=== PATIENT | female | born 1970 | race American Indian/Alaskan Native ===

== ENCOUNTER 2019-05-28 10:58 | Outpatient (CLI) | payer BC ==
--- NOTE | 2019-05-29 14:15 | Mammography Report ---
DIGITAL SCREENING MAMMOGRAM WITH CAD, 05/28/2019 INDICATION: Routine screening mammography. TECHNIQUE: Digital bilateral 2D mammography was obtained in the craniocaudal and mediolateral obliq ue projections. This examination was interpreted with the benefit of Computer-Aided Detection analysi s. COMPARISON: None available. However, she indicated that she had a previous mammogram at [facility]. FINDINGS: Breast Density: The breasts are almost entirely fatty. A partially circumscribed irregular upper outer mass requires additional imaging. It measures 2.6 cm maximum dimension. No associated calcifications. There is no evidence of dominant mass, suspicious ca lcifications or architectural distortion in the right breast. IMPRESSION: A suspicious 2.5 cm left breast mass. Recommend recall for left spot magnification views and targeted left breast ultrasound. We will also attempt to obtain a prior mammogram for comparison. Follow up recommendation: Special View: Mag Category 0: Incomplete. Needs additional imaging evaluation and/or prior mammograms for comparison. A "normal" or negative report should not discourage follow up or biopsy of a clinically significant f inding. A written summary of these findings will be mailed to the patient. The patient will be entered into a mammography reporting system which will generate a reminder letter for the patient's next appointmen t at the appropriate interval. The [employer] recommends yearly mammograms starting at age 40 and continuing as l monica as a woman is in good health. Breast MRI is recommended for women with an approximate 20-25% or greater lifetime risk of breast cancer, including women with a strong family history of breast or ova kassy cancer or who have been treated for Hodgkin's disease. Signer Name: Arthur Mabry MD Signed: 05/29/2019 2:11 PM Workstation Name: [id number]
== END 2019-05-28 10:59 | disposition home or self-care (01) ==
LOC: MAMMO 10:58
DX: Z12.31 Encounter for screening mammogram for malignant neoplasm of breast (principal)
CPT/HCPCS: 77067

== ENCOUNTER 2020-05-26 18:28 | Emergency (ER) | payer BC ==
[2020-05-26 18:39] VITALS: BP 108/67
--- NOTE | 2020-05-26 18:40 | Emergency Department Report ---
Blank Doc - Documentation Documentation: 49-year-old female that presents with SOB and chest pains with fever of 101 and tachycardia at 124. Stated is on chemo for cancer. HX of fluid in lungs and has pleural vac. This initial assessment/diagnostic orders/clinical plan/treatment(s) is/are subject to change based on patient's health status, clinical progression and re- assessment by fellow clinical providers in the ED. Further treatment and workup at subsequent clinical providers discretion. Patient/guardians urged not to elope from the ED as their condition may be serious if not clinically assessed and managed. Initial orders include: 1- Patient sent to [facility] for further evaluation and treatment 2- sepsis workup initiated with cardiac workup
[2020-05-26 19:21] LABS: INR 1.08 (0.87-1.13)
[2020-05-26 19:22] LABS: Partial Thromboplastin Time 24.6 Sec. (24.2-36.6)
--- NOTE | 2020-05-26 19:28 | XRay Report ---
CHEST 2 VIEWS INDICATION / CLINICAL INFORMATION: Chest Pain. COMPARISON: None available. FINDINGS: SUPPORT DEVICES: Right subclavian port appears well positioned. Right chest tube is in place. HEART / MEDIASTINUM: No significant abnormality. LUNGS / PLEURA: There is a moderate right pleural effusion with passive atelectasis in the right lowe r lung. No pneumothorax. ADDITIONAL FINDINGS: No significant additional findings. IMPRESSION: 1. Moderate right pleural effusion with right chest tube in place. Signer Name: Efren Mckinney MD Signed: 05/26/2020 7:23 PM Workstation Name: [id number]
[2020-05-26 19:32] LABS: Alanine Aminotransferase 65 units/L (7-56); Albumin 3.5 g/dL (3.9-5); Blood Urea Nitrogen 5 mg/dL (7-17); Hemolysis Index 33
[2020-05-26 19:39] LABS: Hematocrit 37.7 % (30.3-42.9); Hemoglobin 12.4 gm/dl (10.1-14.3); Mean Corpuscular HGB Conc 33 % (30-34); Mean Corpuscular Volume 90 fl (79-97); Platelet Count 138 K/mm3 (140-440); Red Cell Distribution Width 14.5 % (13.2-15.2)
[2020-05-26 19:55] LABS: BUN/Creatinine Ratio 8
[2020-05-27] MEDS ORDERED: VANCOMYCIN/NS 1 GM/250 ML 1 GM/250 ML BAG IV ONE (03:00)
[2020-05-27] MEDS ORDERED: CEFEPIME/NS 2 GM/100 ML 2 GM/100 ML BAG IV ONE (03:00)
== END 2020-05-27 06:50 | disposition other institution (70) ==
LOC: ED 18:28
DX: R50.9 Fever, unspecified (principal); Z53.21 Procedure and treatment not carried out due to patient leaving prior to being seen by health care provider
CPT/HCPCS: 36415; 71046; 80053; 82140; 83735; 83880; 84484; 85025; 85610; 85730; 87040; J3370; J0692

== ENCOUNTER 2020-12-25 19:30 | Inpatient (IN) | payer BC, MEDICAID ==
[2020-12-25] MEDS ORDERED: SODIUM CHLORIDE 0.9% 1000 ML 1,000 ML IV ONE (20:08)
--- NOTE | 2020-12-25 20:14 | Emergency Department Report ---
HPI - General Chief Complaint: Overdose Time Seen by Provider: 12/25/20 19:51 - HPI HPI: This is a 50-year-old -[place]inamese female who presents to the emergency department via EMS from home after a suicide attempt by overdose of morphine. 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 One of the [facility] hospice nurses went to check on her today and found her with some water in which she had dissolved 120 mg of morphine. This was on top of the Percocet that she also takes. Per the hospice nurse, they have concerned that the patient has been doing this over the past few days. The patient readily admits that she was attempting to end her life due to the pain that she is in. Apparently, per the hospice nurse, the patient has family that lives in [place] but thinks that [facility] is 24-hour care, which he does not. Currently the patient is awake and alert, and just complains of generalized pain. ED Past Medical Hx - Past Medical History Additional medical history: Breast CA - Surgical History Additional Surgical History: Placement of pleurevac drain - Social History Smoking Status: Unknown if ever smoked - Medications Home Medications: Home Medications Medication Instructions Recorded Confirmed Last Taken Type Acetaminophen [Acetaminophen 1 supp SD Q4HR 12/25/20 12/25/20 Unknown History SUPPOS] Apixaban [Eliquis] 5 mg PO DAILY 12/25/20 12/25/20 Unknown History Chlorpheniramine Maleate 4 mg PO DAILY 12/25/20 12/25/20 Unknown History [Chlortabs] LORazepam [Ativan] 1 tab PO QID PRN 12/25/20 12/25/20 Unknown History Magnesium Oxide [Magnesium] 400 mg PO BID 12/25/20 12/25/20 Unknown History Mirtazapine [Remeron] 15 mg PO DAILY 12/25/20 12/25/20 Unknown History Morphine Concentrate 5 ml PO Q6HR PRN 12/25/20 12/25/20 Unknown History Morphine ER [Ms Contin ER] 30 mg PO Q12HR 12/25/20 12/25/20 12/25/20 History Ondansetron HCl [Zofran] 4 mg PO TID PRN 12/25/20 12/25/20 Unknown History Sennosides [Senna] 1 tab PO DAILY 12/25/20 12/25/20 Unknown History Simethicone [Bicarsim] 80 mg PO DAILY 12/25/20 12/25/20 Unknown History oxyCODONE /ACETAMINOPHEN [Percocet 2 tab PO BID 12/25/20 12/25/20 12/25/20 History 5/325] traZODone [Desyrel] 50 mg PO QHS 12/25/20 12/25/20 Unknown History ED Review of Systems ROS: Stated complaint: OVERDOSE Other details as noted in HPI Comment: All other systems reviewed and negative Constitutional: denies: chills, fever Eyes: denies: eye pain, vision change ENT: denies: ear pain, throat pain Respiratory: denies: cough, shortness of breath Cardiovascular: denies: chest pain, palpitations Gastrointestinal: denies: abdominal pain, vomiting Genitourinary: denies: dysuria, discharge Musculoskeletal: arthralgia, myalgia Skin: denies: rash, lesions Neurological: denies: headache, numbness Psychiatric: depression, suicidal thoughts Physical Exam - Physical Exam Vital Signs: Vital Signs 12/25/20 19:38 Temperature 97.7 F Pulse Rate 118 H Respiratory 17 Rate Blood Pressure 128/81 Blood Pressure 128/81 [Left] O2 Sat by Pulse 96 Oximetry Physical Exam: GENERAL: The patient is ill-appearing. HENT: Normocephalic. Atraumatic. Patient has moist mucous membranes. EYES: Extraocular motions are intact. NECK: Supple. Trachea is midline. CHEST/LUNGS: Clear to auscultation. There is no respiratory distress noted. There is some chest wall tenderness to palpation. No crepitus. HEART/CARDIOVASCULAR: Regular. There is moderate tachycardia. There is no murmur. ABDOMEN: Abdomen is soft, nontender. Patient has normal bowel sounds. There is no abdominal distention. SKIN: Skin is warm and dry. NEURO: The patient is awake, alert, and cooperative. Normal speech. MUSCULOSKELETAL: There is no tenderness or deformity. Radial pulse +2/4 and capillary refill less than 2 seconds bilaterally. ED Course Vital Signs 12/25/20 19:38 Temperature 97.7 F Pulse Rate 118 H Respiratory 17 Rate Blood Pressure 128/81 Blood Pressure 128/81 [Left] O2 Sat by Pulse 96 Oximetry - Consultations Consultation #1: 12/25/20 23:40 I spoke to the neurosurgeon on-call, Dr. Chappell. He took a look at the CT scan and does not feel that the small area of C3 retropulsion has caused any significant cord compression. He recommends a soft cervical collar, instead of a hard one, for comfort. He says that he he would do a consult if requested by the medicine service, but that there is not much to be done given the CT appearance and the patient's status and hospice. - EJ/Peripheral Line Arm R Time Out Performed: Yes Indications: nurses unable to establis Skin Cleansed in Sterile Fashion: Yes Size: 22 Dressing Placed: Tegaderm, tape Patient Tolerated Procedure: well ED Medical Decision Making - Lab Data Result diagrams: 12/25/20 20:07 12/25/20 20:07 Lab Results 12/25/20 12/25/20 12/25/20 Range/Units 20:07 20:07 20:07 WBC 11.4 H (4.5-11.0) K/mm3 RBC 3.68 (3.65-5.03) M/mm3 Hgb 10.9 (10.1-14.3) gm/dl Hct 32.3 (30.3-42.9) % MCV 88 (79-97) fl MCH 30 (28-32) pg MCHC 34 (30-34) % RDW 19.2 H (13.2-15.2) % Plt Count 272 (140-440) K/mm3 Add Manual Diff Complete Total Counted 100 Seg Neutrophils % Director Of Financial Aid Seg Neuts % (Manual) 89.0 H (40.0-70.0) % Lymphocytes % (Manual) 6.0 L (13.4-35.0) % Monocytes % (Manual) 5.0 (0.0-7.3) % Nucleated RBC % Not Reportable Seg Neutrophils # Man 10.1 H (1.8-7.7) K/mm3 Band Neutrophils # 0.0 K/mm3 Lymphocytes # (Manual) 0.7 L (1.2-5.4) K/mm3 Abs React Lymphs (Man) 0.0 K/mm3 Monocytes # (Manual) 0.6 (0.0-0.8) K/mm3 Eosinophils # (Manual) 0.0 (0.0-0.4) K/mm3 Basophils # (Manual) 0.0 (0.0-0.1) K/mm3 Metamyelocytes # 0.0 K/mm3 Myelocytes # 0.0 K/mm3 Promyelocytes # 0.0 K/mm3 Blast Cells # 0.0 K/mm3 WBC Morphology Not Reportable Hypersegmented Neuts Not Reportable Hyposegmented Neuts Not Reportable Hypogranular Neuts Not Reportable Smudge Cells Not Reportable Toxic Granulation Not Reportable Toxic Vacuolation Not Reportable Dohle Bodies Not Reportable Pelger-Huet Anomaly Not Reportable Carlos Rods Not Reportable Platelet Estimate Not Reportable Clumped Platelets Not Reportable Plt Clumps, EDTA Not Reportable Large Platelets Not Reportable Giant Platelets Not Reportable Platelet Satelliting Not Reportable Plt Morphology Comment Not Reportable RBC Morphology Normal Dimorphic RBCs Not Reportable Polychromasia Not Reportable Hypochromasia Not Reportable Poikilocytosis Not Reportable Anisocytosis Not Reportable Microcytosis Not Reportable Macrocytosis Not Reportable Spherocytes Not Reportable Pappenheimer Bodies Not Reportable Sickle Cells Not Reportable Target Cells Not Reportable Tear Drop Cells Not Reportable Ovalocytes Not Reportable Helmet Cells Not Reportable [place] Bodies Not Reportable [place] Rings Not Reportable Dandre Cells Not Reportable Bite Cells Not Reportable Crenated Cell Not Reportable Elliptocytes Not Reportable Acanthocytes (Spur) Not Reportable Rouleaux Not Reportable Hemoglobin C Crystals Not Reportable Schistocytes Not Reportable Malaria parasites Not Reportable Maninder Bodies Not Reportable Hem Pathologist Commnt No Sodium 123 L (137-145) mmol/L Potassium 3.7 (3.6-5.0) mmol/L Chloride 81.8 L (98-107) mmol/L Carbon Dioxide 23 (22-30) mmol/L Anion Gap 22 mmol/L BUN 9 (7-17) mg/dL Creatinine 0.3 L (0.6-1.2) mg/dL Estimated GFR > 60 ml/min BUN/Creatinine Ratio 30 % Glucose 98 (65-100) mg/dL Calcium 11.5 H (8.4-10.2) mg/dL Phosphorus (2.5-4.5) mg/dL Magnesium (1.7-2.3) mg/dL Total Bilirubin 1.20 (0.1-1.2) mg/dL AST 58 H (5-40) units/L ALT 17 (7-56) units/L Alkaline Phosphatase 244 H (35-129) units/L Total Protein 7.0 (6.3-8.2) g/dL Albumin 3.0 L (3.9-5) g/dL Albumin/Globulin Ratio 0.8 % Salicylates < 0.3 L (2.8-20.0) mg/dL Acetaminophen (10.0-30.0) ug/mL Plasma/Serum Alcohol (0-0.07) % 12/25/20 12/25/20 12/25/20 Range/Units 20:07 20:07 20:07 WBC (4.5-11.0) K/mm3 RBC (3.65-5.03) M/mm3 Hgb (10.1-14.3) gm/dl Hct (30.3-42.9) % MCV (79-97) fl MCH (28-32) pg MCHC (30-34) % RDW (13.2-15.2) % Plt Count (140-440) K/mm3 Add Manual Diff Total Counted Seg Neutrophils % Seg Neuts % (Manual) (40.0-70.0) % Lymphocytes % (Manual) (13.4-35.0) % Monocytes % (Manual) (0.0-7.3) % Nucleated RBC % Seg Neutrophils # Man (1.8-7.7) K/mm3 Band Neutrophils # K/mm3 Lymphocytes # (Manual) (1.2-5.4) K/mm3 Abs React Lymphs (Man) K/mm3 Monocytes # (Manual) (0.0-0.8) K/mm3 Eosinophils # (Manual) (0.0-0.4) K/mm3 Basophils # (Manual) (0.0-0.1) K/mm3 Metamyelocytes # K/mm3 Myelocytes # K/mm3 Promyelocytes # K/mm3 Blast Cells # K/mm3 WBC Morphology Hypersegmented Neuts Hyposegmented Neuts Hypogranular Neuts Smudge Cells Toxic Granulation Toxic Vacuolation Dohle Bodies Pelger-Huet Anomaly Carlos Rods Platelet Estimate Clumped Platelets Plt Clumps, EDTA Large Platelets Giant Platelets Platelet Satelliting Plt Morphology Comment RBC Morphology Dimorphic RBCs Polychromasia Hypochromasia Poikilocytosis Anisocytosis Microcytosis Macrocytosis Spherocytes Pappenheimer Bodies Sickle Cells Target Cells Tear Drop Cells Ovalocytes Helmet Cells [place] Bodies Lincoln Rings Randall Cells Bite Cells Crenated Cell Elliptocytes Acanthocytes (Spur) Rouleaux Hemoglobin C Crystals Schistocytes Malaria parasites Maninder Bodies Hem Pathologist Commnt Sodium (137-145) mmol/L Potassium (3.6-5.0) mmol/L Chloride (98-107) mmol/L Carbon Dioxide (22-30) mmol/L Anion Gap mmol/L BUN (7-17) mg/dL Creatinine (0.6-1.2) mg/dL Estimated GFR ml/min BUN/Creatinine Ratio % Glucose (65-100) mg/dL Calcium (8.4-10.2) mg/dL Phosphorus 4.00 (2.5-4.5) mg/dL Magnesium 1.70 (1.7-2.3) mg/dL Total Bilirubin (0.1-1.2) mg/dL AST (5-40) units/L ALT (7-56) units/L Alkaline Phosphatase (35-129) units/L Total Protein (6.3-8.2) g/dL Albumin (3.9-5) g/dL Albumin/Globulin Ratio % Salicylates (2.8-20.0) mg/dL Acetaminophen 5.0 L (10.0-30.0) ug/mL Plasma/Serum Alcohol < 0.01 (0-0.07) % - EKG Data -: EKG Interpreted by Sc EKG shows normal: sinus rhythm, axis, intervals, QRS complexes, ST-T waves Rate: tachycardia (116 bpm) - EKG Data When compared to previous EKG there are: previous EKG unavailable Interpretation: normal EKG (With tachycardia at 116 bpm) - Radiology Data Radiology results: report reviewed CT HEAD WITHOUT CONTRAST INDICATION: fall, hx of stage 4 breast ca, OD TECHNIQUE: All CT scans at this location are performed using CT dose reduction for ALARA by means of automated exposure control. COMPARISON: None available. FINDINGS: Motion artifact moderately degrades the study. BRAIN: No hemorrhage or mass effect are seen. No evidence of acute infarction is noted. ORBITS: Normal as visualized. SOFT TISSUES OF HEAD: Normal. CALVARIUM: Normal. VISUALIZED PARANASAL SINUSES AND MASTOID AIR CELLS: Slight meniscus in the posterior aspect of the right maxillary sinus could indicate semifluid contents but no true air- fluid level seen. Other sinuses are clear. Sinus landrum appear intact. ADDITIONAL FINDINGS: None. IMPRESSION: No acute intracranial abnormality. CT CERVICAL SPINE WITHOUT CONTRAST INDICATION: fall, hx of stage 4 breast ca, OD TECHNIQUE: All CT scans at this location are performed using CT dose reduction for ALARA by means of automated exposure control. Axial CT images were obtained through the cervical spine. Sagittal and coronal reformatted images were produced. Artifact is seen in the lower images. COMPARISON: None available. Cervical spine findings: Multiple sclerotic lesions are seen consistent with metastatic disease. Bone lysis is prominent in the C3 vertebral body which shows prominent collapse. There is retropulsion by approximately 3 mm measured from the posterior aspect of the C2 body. No si -- gnificant subluxation is seen. The bone lysis in the vertebral body prominently extends through the right pedicle to the facet region and moderately extensive in the left pedicle. Bone lysis is moderately prominent in the C7 right posterior elements with mild posterior cortical breakthrough. Small area of lysis is seen in the left C7 pedicle area and transverse process. Small area of lysis is also noted in the T3 vertebral body. No other fractures are seen. Degenerative changes are moderately prominent in the lower cervical spine and bilateral facet arthritic changes are seen. C1- C2 arthritic changes are noted. Additional findings: 7 mm hypodensity is seen in the mid left lobe of the thyroid. Probably chronic diffuse thickening is seen of the right apical pleura circumferentially. IMPRESSION: Prominent evidence of bony metastatic disease including sclerotic and lytic elements as discussed. There is prominent bone lysis at C2-3 involving the vertebral body with extension into both pedicles but particularly on the right where the pedicle is almost entirely destroyed. Prominent compression of the C3 vertebral body is seen with mild retropulsion of a fragment. This is considered a potentially unstable situation based on the pedicle involvement. Signer Name: Jesus Malik MD Signed: 12/25/2020 10:49 PM Workstation Name: [id number] Transcribed By: GJ Dictated By: Jesus Malik MD Electronically Authenticated By: Jesus Malik MD Signed Date/Time: 12/25/202248 DD/ 36 TD/TT: [Addendum Report Added by JESUS MALIK at 2020-12-25 23:56:52] [facility] [address] [place] [address] Cat Scan Report Signed Patient: KATY GUIDO MR#: [id number] : 1970 Acct:[id number] Age/Sex: 50 / F ADM Date: 12/25/20 Loc: ED Attending Dr: Ordering Physician: GILBERTO KNOWLES DO Date of Service: 12/25/20 Procedure(s): CT cervical spine wo con Accession Number(s): [id number] cc: GILBERTO KNOWLES DO CT HEAD WITHOUT CONTRAST INDICATION: fall, hx of stage 4 breast ca, OD TECHNIQUE: All CT scans at this location are performed using CT dose reduction for ALARA by means of automated exposure control. COMPARISON: None available. FINDINGS: Motion artifact moderately degrades the study. BRAIN: No hemorrhage or mass effect are seen. No evidence of acute infarction is noted. ORBITS: Normal as visualized. SOFT TISSUES OF HEAD: Normal. CALVARIUM: Normal. VISUALIZED PARANASAL SINUSES AND MASTOID AIR CELLS: Slight meniscus in the posterior aspect of the right maxillary sinus could indicate semifluid contents but no true air-fluid level seen. Other sinuses are clear. Sinus landrum appear intact. ADDITIONAL FINDINGS: None. IMPRESSION: No acute intracranial abnormality. CT CERVICAL SPINE WITHOUT CONTRAST INDICATION: fall, hx of stage 4 breast ca, OD TECHNIQUE: All CT scans at this location are performed using CT dose reduction for ALARA by means of automated exposure control. Axial CT images were obtained through the cervical spine. Sagittal and coronal reformatted images were produced. Artifact is seen in the lower images. COMPARISON: None available. Cervical spine findings: Multiple sclerotic lesions are seen consistent with met astatic disease. Bone lysis is prominent in the C3 vertebral body which shows prominent collapse. There is retropulsion by approximately 3 mm measured from the posterior aspect of the C2 body. No significant subluxation is seen. The bone lysis in the vertebral body prominently extends through the right pedicle to the facet region and moderately extensive in the left pedicle. Bone lysis is moderately prominent in the C7 right posterior elements with mild posterior cortical breakthrough. Small area of lysis is seen in the left C7 pedicle area and transverse process. Small area of lysis is also noted in the T3 vertebral body. No other fractures are seen. Degenerative changes are moderately prominent in the lower cervical spine and bilateral facet arthritic changes are seen. C1- C2 arthritic changes are noted. Additional findings: 7 mm hypodensity is seen in the mid left lobe of the thyroid. Probably chronic diffuse thickening is seen of the right apical pleura circumferentially. IMPRESSION: Prominent evidence of bony metastatic disease including sclerotic and lytic elements as discussed. There is prominent bone lysis at C2-3 involving the vertebral body with extension into both pedicles but particularly on the right where the pedicle is almost entirely destroyed. Prominent compression of the C3 vertebral body is seen with mild retropulsion of a fragment. This is considered a potentially unstable situation based on the pedicle involvement. - Medical Decision Making This patient presented from home after she was found by one of her visiting home hospice nurses to be on the ground. The patient admitted to both the hospice nurse, as well as myself, that she took at least 4 oral morphine with the intent of killing herself. For this reason the patient was placed on a 1013 and ED hold. The patient was awake and alert. She has moderate tachycardia. She does not appear in any respiratory distress. The patient's labs showed hyponatremia with a sodium of 123, and hypercalcemia with a level of about 11.5. The rest of the labs are mostly unremarkable. After I was notified that the patient was found on the ground, I sent her for a CT scan of the head and cervical spine. CT of the head did not show any hemorrhage, large vessel occlusion, hydrocephalus, or any other acute process. However CT scan of the cervical spine shows multiple sclerotic and lytic lesions, erosion and almost estimation of the C2 pedicles, and a fracture f ragment of the C3 vertebral body with some mild retropulsion. I spoke with the neurosurgeon who took a look at the CT scan and felt that it did not appear consistent with much cord compression. Also, given the patient's status in hospice, that there is not much to be done from a neurosurgical standpoint. This patient will be admitted to the hospital for further evaluation and treatment was accepted for admission by the hospitalist, Dr. Cao. Critical Care Time: No Critical care attestation.: If time is entered above; I have spent that time in minutes in the direct care of this critically ill patient, excluding procedure time. ED Disposition Clinical Impression: Suicide attempt by drug overdose, Hyponatremia, Hypercalcemia Overdose of opiate or related narcotic Qualifiers: Encounter type: initial encounter Injury intent: intentional self-harm Qualified Code(s): T40.602A - Poisoning by unspecified narcotics, intentional self-harm, initial encounter Breast cancer metastasized to bone Qualifiers: Laterality: unspecified laterality Qualified Code(s): C50.919 - Malignant neoplasm of unspecified site of unspecified female breast; C79.51 - Secondary malignant neoplasm of bone Fracture of pedicle of cervical vertebra Qualifiers: Encounter type: initial encounter Qualified Code(s): S12.9XXA - Fracture of neck, unspecified, initial encounter Disposition: DC-09 OP ADMIT IP TO THIS HOSP Is pt being admited?: Yes Condition: Serious Time of Disposition: 23:14
[2020-12-25 20:22] LABS: Hematocrit 32.3 % (30.3-42.9); Hemoglobin 10.9 gm/dl (10.1-14.3); Mean Corpuscular HGB Conc 34 % (30-34); Mean Corpuscular Volume 88 fl (79-97); Platelet Count 272 K/mm3 (140-440); Red Blood Count 3.68 M/mm3 (3.65-5.03); Red Cell Distribution Width 19.2 % (13.2-15.2)
[2020-12-25 20:38] LABS: Alanine Aminotransferase 17 units/L (7-56); Blood Urea Nitrogen 9 mg/dL (7-17); Calcium 11.5 mg/dL (8.4-10.2); Hemolysis Index 16
[2020-12-25 20:41] LABS: BUN/Creatinine Ratio 30
[2020-12-25 20:56] LABS: RBC Morphology Normal; Total Cells Counted 100
[2020-12-25 21:01] LABS: Bacteria,Urine 1+ /HPF (Negative); Bilirubin,Urine NEG (Negative); Blood,Urine NEG (Negative); Color,Urine Yellow (Yellow); Mucus,Urine FEW /HPF; RBC,Urine < 1.0 /HPF (0.0-6.0); Urobilinogen,Urine < 2.0 mg/dL (<2.0)
[2020-12-25 21:07] LABS: Amphetamine Screen,Urine Negative; Benzodiazepines Screen,Urine Negative; Cannabinoid Screen,Urine Negative; Cocaine Screen,Urine Negative; Methadone Screen,Urine Negative
[2020-12-25 21:18] LABS: Opiate Screen,Urine Positive
--- NOTE | 2020-12-25 22:54 | Cat Scan Report ---
CT HEAD WITHOUT CONTRAST INDICATION: fall, hx of stage 4 breast ca, OD TECHNIQUE: All CT scans at this location are performed using CT dose reduction for ALARA by means of automated exposure control. COMPARISON: None available. FINDINGS: Motion artifact moderately degrades the study. BRAIN: No hemorrhage or mass effect are seen. No evidence of acute infarction is noted. ORBITS: Normal as visualized. SOFT TISSUES OF HEAD: Normal. CALVARIUM: Normal. VISUALIZED PARANASAL SINUSES AND MASTOID AIR CELLS: Slight meniscus in the posterior aspect of the ri ght maxillary sinus could indicate semifluid contents but no true air-fluid level seen. Other sinuses are clear. Sinus landrum appear intact. ADDITIONAL FINDINGS: None. IMPRESSION: No acute intracranial abnormality. CT CERVICAL SPINE WITHOUT CONTRAST INDICATION: fall, hx of stage 4 breast ca, OD TECHNIQUE: All CT scans at this location are performed using CT dose reduction for ALARA by means of automated exposure control. Axial CT images were obtained through the cervical spine. Sagittal and co pk reformatted images were produced. Artifact is seen in the lower images. COMPARISON: None available. Cervical spine findings: Multiple sclerotic lesions are seen consistent with metastatic disease. Bone lysis is prominent in the C3 vertebral body which shows prominent collapse. There is retropulsion by approximately 3 mm measured from the posterior aspect of the C2 body. No significant subluxation is seen. The bone lysis in the vertebral body prominently extends through the right pedicle to the facet region and moderately extensive in the left pedicle. Bone lysis is moderately prominent in the C7 ri ght posterior elements with mild posterior cortical breakthrough. Small area of lysis is seen in the left C7 pedicle area and transverse process. Small area of lysis is also noted in the T3 vertebral maverick dy. No other fractures are seen. Degenerative changes are moderately prominent in the lower cervical spine and bilateral facet arthritic changes are seen. C1-C2 arthritic changes are noted. Additional findings: 7 mm hypodensity is seen in the mid left lobe of the thyroid. Probably chronic d iffuse thickening is seen of the right apical pleura circumferentially. IMPRESSION: Prominent evidence of bony metastatic disease including sclerotic and lytic elements as discussed. There is prominent bone lysis at C2-3 involving the vertebral body with extension into bot h pedicles but particularly on the right where the pedicle is almost entirely destroyed. Prominent co mpression of the C3 vertebral body is seen with mild retropulsion of a fragment. This is considered a potentially unstable situation based on the pedicle involvement. Signer Name: Jesus Malik MD Signed: 12/25/2020 10:49 PM Workstation Name: [id number]
[2020-12-25] MEDS ORDERED: ALBUTEROL 2.5 MG/3 ML NEBU IH PRN (23:31)
[2020-12-25] MEDS ORDERED: ACETAMINOPHEN 325 MG TAB PO PRN (23:31)
[2020-12-25] MEDS ORDERED: ONDANSETRON 4 MG/2 ML INJ IV PRN (23:31)
[2020-12-25] MEDS ORDERED: hydrALAZINE 20 MG/1 ML INJ IV PRN (23:37)
--- NOTE | 2020-12-25 23:43 | History and Physical Report ---
History of Present Illness Date of examination: 12/25/20 Date of admission: 12/25/20 Chief complaint: Drug overdose Morphine overdose History of present illness: 50-year-old -[place] femalehistory of stage IV breast cancer with bony metastasis and is currently on hospice, but lives alone was brought to the emergency department via EMS from home after a suicide attempt by overdose of morphine. One of the [facility] hospice nurses went to check on her today and found her with some water in which she had dissolved 120 mg of morphine. This was on top of the Percocet that she also takes. Per the hospice nurse, they have concerned that the patient has been doing this over the past few days. The patient readily admits that she was attempting to end her life due to the pain that she is in. Apparently, per the hospice nurse, the patient has family that lives in [place] but thinks that [facility] is 24-hour care, which he does not. Currently the patient is awake and alert, and just complains of generalized pain. In the emergency room patient is found to have morphine overdose. Also patient sodium is 123 CT scan of the head and cervical spine showed prominent evidence of bony metastasis disease including sclerotic and lytic elements. There is prominent bone lysis at C2-C3 involving the vertebral body with extension into the both pe dicles but particularly on the right higher the pedicle is almost entirely destroyed. Prominent compression of the C3 vertebral body is seen with mild retropulsion of a fragment. This is considered a potentially unstable situation based on the pedicle involvement. Subsequently ER physician talked with neurosurgeon Dr. Francisco Bateman who will see the patient in consultation in the morning. Past History Past Medical History: other (Breast cancer) Medications and Allergies Allergies Allergy/AdvReac Type Severity Reaction Status Date / Time Penicillins Allergy Hives Verified 05/26/20 18:38 Home Medications Medication Instructions Recorded Confirmed Last Taken Type Acetaminophen [Acetaminophen 1 supp VA Q4HR 12/25/20 12/25/20 Unknown History SUPPOS] Apixaban [Eliquis] 5 mg PO DAILY 12/25/20 12/25/20 Unknown History Chlorpheniramine Maleate 4 mg PO DAILY 12/25/20 12/25/20 Unknown History [Chlortabs] LORazepam [Ativan] 1 tab PO QID PRN 12/25/20 12/25/20 Unknown History Magnesium Oxide [Magnesium] 400 mg PO BID 12/25/20 12/25/20 Unknown History Mirtazapine [Remeron] 15 mg PO DAILY 12/25/20 12/25/20 Unknown History Morphine Concentrate 5 ml PO Q6HR PRN 12/25/20 12/25/20 Unknown History Morphine ER [Ms Contin ER] 30 mg PO Q12HR 12/25/20 12/25/20 12/25/20 History Ondansetron HCl [Zofran] 4 mg PO TID PRN 12/25/20 12/25/20 Unknown History Sennosides [Senna] 1 tab PO DAILY 12/25/20 12/25/20 Unknown History Simethicone [Bicarsim] 80 mg PO DAILY 12/25/20 12/25/20 Unknown History oxyCODONE /ACETAMINOPHEN [Percocet 2 tab PO BID 12/25/20 12/25/20 12/25/20 History 5/325] traZODone [Desyrel] 50 mg PO QHS 12/25/20 12/25/20 Unknown History Active Meds: Active Medications Acetaminophen (Acetaminophen 325 Mg Tab) 650 mg PO Q4H PRN PRN Reason: Pain MILD(1-3)/Fever >100.5/MARCANO Albuterol (Albuterol 2.5 Mg/3 Ml Nebu) 2.5 mg IH Q3HRT PRN PRN Reason: Shortness Of Breath Albuterol/Ipratropium (Ipratropium/Albuterol Sulfate 3 Ml Ampul.Neb) 1 ampul IH Q6HRT MARYELLEN Famotidine (Famotidine 20 Mg/2 Ml Inj) 20 mg IV BID MARYELLEN Hydralazine HCl (Hydralazine 20 Mg/1 Ml Inj) 10 mg IV Q6H PRN PRN Reason: htn Sodium Chloride (Nacl 0.9% 1000 Ml) 1,000 mls @ 125 mls/hr IV ONCE ONE Stop: 12/26/20 04:07 Last Admin: 12/25/20 22:39 Dose: 125 mls/hr Documented by: Dextrose/Sodium Chloride (D5/0.45ns) 1,000 mls @ 100 mls/hr IV DIRECT MARYELLEN Mirtazapine (Mirtazapine 15 Mg Tab) 15 mg PO DAILY MARYELLEN Miscellaneous Medication (Apixaban) 5 mg PO DAILY MARYELLEN Miscellaneous Medication (Magnesium Oxide [Magnesium]) 400 mg PO BID MARYELLEN Miscellaneous Medication (Simethicone [Bicarsim]) 80 mg PO DAILY [facility] Ondansetron HCl (Ondansetron 4 Mg/2 Ml Inj) 4 mg IV Q8H PRN PRN Reason: Nausea And Vomiting Senna (Sennosides 8.6 Mg Tab) mg PO DAILY MARYELLEN Sodium Chloride (Sodium Chloride 0.9% 10 Ml Flush Syringe) 10 ml IV BID MARYELLEN Sodium Chloride (Sodium Chloride 0.9% 10 Ml Flush Syringe) 10 ml IV PRN PRN PRN Reason: LINE FLUSH Review of Systems Neurological: change in mentation Exam - Constitutional Vitals: Temp Pulse Resp BP Pulse Ox 97.7 F 114 H 26 H 126/83 100 12/25/20 19:38 12/25/20 21:00 12/25/20 21:00 12/25/20 21:00 12/25/20 21:00 General appearance: Present: mild distress, cachectic - EENT Eyes: Present: PERRL ENT: hearing intact, clear oral mucosa - Neck Neck: Present: supple, normal ROM - Respiratory Respiratory effort: normal Respiratory: bilateral: diminished - Cardiovascular Heart Sounds: Present: S1 & S2. Absent: rub, click - Extremities Extremities: pulses symmetrical, No edema Peripheral Pulses: within normal limits - Abdominal General gastrointestinal: Present: soft, non-tender, non-distended, normal bowel sounds Female genitourinary: Present: normal - Integumentary Integumentary: Present: clear, warm, dry - Musculoskeletal Musculoskeletal: gait normal, strength equal bilaterally - Psychiatric Psychiatric: depressed - Neurologic Neurologic: CNII-XII intact, moves all extremities, other (Patient has altered mental status. Patient is cachectic) Results - Labs CBC & Chem 7: 12/25/20 20:07 12/25/20 20:07 Labs: Laboratory Last Values WBC 11.4 K/mm3 (4.5-11.0) H 12/25/20 20:07 RBC 3.68 M/mm3 (3.65-5.03) 12/25/20 20:07 Hgb 10.9 gm/dl (10.1-14.3) 12/25/20 20:07 Hct 32.3 % (30.3-42.9) 12/25/20 20:07 MCV 88 fl (79-97) 12/25/20 20:07 MCH 30 pg (28-32) 12/25/20 20:07 MCHC 34 % (30-34) 12/25/20 20:07 RDW 19.2 % (13.2-15.2) H 12/25/20 20:07 Plt Count 272 K/mm3 (140-440) 12/25/20 20:07 Add Manual Diff Complete 12/25/20 20:07 Total Counted 100 12/25/20 20:07 Seg Neutrophils % Student Dean 12/25/20 20:07 Seg Neuts % (Manual) 89.0 % (40.0-70.0) H 12/25/20 20:07 Lymphocytes % (Manual) 6.0 % (13.4-35.0) L 12/25/20 20:07 Monocytes % (Manual) 5.0 % (0.0-7.3) 12/25/20 20:07 Nucleated RBC % Not Reportable 12/25/20 20:07 Seg Neutrophils # Man 10.1 K/mm3 (1.8-7.7) H 12/25/20 20:07 Band Neutrophils # 0.0 K/mm3 12/25/20 20:07 Lymphocytes # (Manual) 0.7 K/mm3 (1.2-5.4) L 12/25/20 20:07 Abs React Lymphs (Man) 0.0 K/mm3 12/25/20 20:07 Monocytes # (Manual) 0.6 K/mm3 (0.0-0.8) 12/25/20 20:07 Eosinophils # (Manual) 0.0 K/mm3 (0.0-0.4) 12/25/20 20:07 Basophils # (Manual) 0.0 K/mm3 (0.0-0.1) 12/25/20 20:07 Metamyelocytes # 0.0 K/mm3 12/25/20 20:07 Myelocytes # 0.0 K/mm3 12/25/20 20:07 Promyelocytes # 0.0 K/mm3 12/25/20 20:07 Blast Cells # 0.0 K/mm3 12/25/20 20:07 WBC Morphology Not Reportable 12/25/20 20:07 Hypersegmented Neuts Not Reportable 12/25/20 20:07 Hyposegmented Neuts Not Reportable 12/25/20 20:07 Hypogranular Neuts Not Reportable 12/25/20 20:07 Smudge Cells Not Reportable 12/25/20 20:07 Toxic Granulation Not Reportable 12/25/20 20:07 Toxic Vacuolation Not Reportable 12/25/20 20:07 Dohle Bodies Not Reportable 12/25/20 20:07 Pelger-Huet Anomaly Not Reportable 12/25/20 20:07 Carlos Rods Not Reportable 12/25/20 20:07 Platelet Estimate Not Reportable 12/25/20 20:07 Clumped Platelets Not Reportable 12/25/20 20:07 Plt Clumps, EDTA Not Reportable 12/25/20 20:07 Large Platelets Not Reportable 12/25/20 20:07 Giant Platelets Not Reportable 12/25/20 20:07 Platelet Satelliting Not Reportable 12/25/20 20:07 Plt Morphology Comment Not Reportable 12/25/20 20:07 RBC Morphology Normal 12/25/20 20:07 Dimorphic RBCs Not Reportable 12/25/20 20:07 Polychromasia Not Reportable 12/25/20 20:07 Hypochromasia Not Reportable 12/25/20 20:07 Poikilocytosis Not Reportable 12/25/20 20:07 Anisocytosis Not Reportable 12/25/20 20:07 Microcytosis Not Reportable 12/25/20 20:07 Macrocytosis Not Reportable 12/25/20 20:07 Spherocytes Not Reportable 12/25/20 20:07 Pappenheimer Bodies Not Reportable 12/25/20 20:07 Sickle Cells Not Reportable 12/25/20 20:07 Target Cells Not Reportable 12/25/20 20:07 Tear Drop Cells Not Reportable 12/25/20 20:07 Ovalocytes Not Reportable 12/25/20 20:07 Helmet Cells Not Reportable 12/25/20 20:07 [place] Bodies Not Reportable 12/25/20 20:07 [place] Rings Not Reportable 12/25/20 20:07 Dandre Cells Not Reportable 12/25/20 20:07 Bite Cells Not Reportable 12/25/20 20:07 Crenated Cell Not Reportable 12/25/20 20:07 Elliptocytes Not Reportable 12/25/20 20:07 Acanthocytes (Spur) Not Reportable 12/25/20 20:07 Rouleaux Not Reportable 12/25/20 20:07 Hemoglobin C Crystals Not Reportable 12/25/20 20:07 Schistocytes Not Reportable 12/25/20 20:07 Malaria parasites Not Reportable 12/25/20 20:07 Maninder Bodies Not Reportable 12/25/20 20:07 Hem Pathologist Commnt No 12/25/20 20:07 Sodium 123 mmol/L (137-145) L 12/25/20 20:07 Potassium 3.7 mmol/L (3.6-5.0) 12/25/20 20:07 Chloride 81.8 mmol/L (98-107) L 12/25/20 20:07 Carbon Dioxide 23 mmol/L (22-30) 12/25/20 20:07 Anion Gap 22 mmol/L 12/25/20 20:07 BUN 9 mg/dL (7-17) 12/25/20 20:07 Creatinine 0.3 mg/dL (0.6-1.2) L 12/25/20 20:07 Estimated GFR > 60 ml/min 12/25/20 20:07 BUN/Creatinine Ratio 30 % 12/25/20 20:07 Glucose 98 mg/dL (65-100) 12/25/20 20:07 Calcium 11.5 mg/dL (8.4-10.2) H 12/25/20 20:07 Phosphorus 4.00 mg/dL (2.5-4.5) 12/25/20 20:07 Magnesium 1.70 mg/dL (1.7-2.3) 12/25/20 20:07 Total Bilirubin 1.20 mg/dL (0.1-1.2) 12/25/20 20:07 AST 58 units/L (5-40) H 12/25/20 20:07 ALT 17 units/L (7-56) 12/25/20 20:07 Alkaline Phosphatase 244 units/L (35-129) H 12/25/20 20:07 Total Protein 7.0 g/dL (6.3-8.2) 12/25/20 20:07 Albumin 3.0 g/dL (3.9-5) L 12/25/20 20:07 Albumin/Globulin Ratio 0.8 % 12/25/20 20:07 Urine Color Yellow (Yellow) 12/25/20 Unknown Urine Turbidity Clear (Clear) 12/25/20 Unknown Urine pH 6.0 (5.0-7.0) 12/25/20 Unknown Ur Specific [place] 1.015 (1.003-1.030) 12/25/20 Unknown Urine Protein 100 mg/dl mg/dL (Negative) 12/25/20 Unknown Urine Glucose (UA) Neg mg/dL (Negative) 12/25/20 Unknown Urine Ketones 20 mg/dL (Negative) 12/25/20 Unknown Urine Blood Neg (Negative) 12/25/20 Unknown Urine Nitrite Neg (Negative) 12/25/20 Unknown Urine Bilirubin Neg (Negative) 12/25/20 Unknown Urine Urobilinogen < 2.0 mg/dL (<2.0) 12/25/20 Unknown Ur Leukocyte Esterase Neg (Negative) 12/25/20 Unknown Urine WBC (Auto) 1.0 /HPF (0.0-6.0) 12/25/20 Unknown Urine RBC (Auto) < 1.0 /HPF (0.0-6.0) 12/25/20 Unknown Urine Bacteria (Auto) 1+ /HPF (Negative) 12/25/20 Unknown Urine Mucus Few /HPF 12/25/20 Unknown Salicylates < 0.3 mg/dL (2.8-20.0) L 12/25/20 20:07 Urine Opiates Screen Positive 12/25/20 Unknown Urine Methadone Screen Negative 12/25/20 Unknown Acetaminophen 5.0 ug/mL (10.0-30.0) L 12/25/20 20:07 Ur Barbiturates Screen Negative 12/25/20 Unknown Ur Phencyclidine Scrn Negative 12/25/20 Unknown Ur Amphetamines Screen Negative 12/25/20 Unknown U Benzodiazepines Scrn Negative 12/25/20 Unknown Urine Cocaine Screen Negative 12/25/20 Unknown U Marijuana (THC) Screen Negative 12/25/20 Unknown Drugs of Abuse Note Disclamer 12/25/20 Unknown Plasma/Serum Alcohol < 0.01 % (0-0.07) 12/25/20 20:07 - Imaging and Cardiology CT Scan - head: report reviewed Assessment and Plan VTE prophylaxis?: Chemical Plan of care discussed with patient/family: Yes - Patient Problems (1) Overdose of opiate or related narcotic Current Visit: Yes Status: Acute Plan to address problem: Admit the patient to the medical telemetry. N.p.o. D5 normal saline at the ra te of 100 cc/h. We will discontinue all narcotic medication. Oxygen by nasal cannula 3 L/min. DuoNeb by nebulizer every 4 hours as needed. We will monitor the patient closely. We also consult inpatient psych. We also consult case management for palliative care. (2) Suicide attempt by drug overdose Current Visit: Yes Status: Acute Plan to address problem: N.p.o. G1ajltyc saline at the rate of 100 cc/h. We will discontinue all narcotic medication. Oxygen by nasal cannula 3 L/min. DuoNeb by nebulizer every 4 hours as needed. We will monitor the patient closely. We also consult inpatient psych (3) Breast cancer metastasized to bone Current Visit: Yes Status: Acute Plan to address problem: Patient has breast cancer metastatic to the bone and liver. Prognosis is poor. Will consult hematology oncology in the morning if needed (4) Fracture of pedicle of cervical vertebra Current Visit: Yes Status: Acute Plan to address problem: Patient is on soft neck collar as per neurosurgeon. ER doctor already talk with Dr. Francisco Bateman. Neurosurgeon will see the patient in the morning (5) Hypercalcemia Current Visit: Yes Status: Acute Plan to address problem: We will read rehydrate the patient. D5 normal saline at the rate 100 cc/h. We will recheck the BMP in the morning. will put the patient on calcitonin (6) Hyponatremia Current Visit: Yes Status: Acute Plan to address problem: D5 normal saline at the rate of 100 cc/h. Recheck the BMP in the morning. (7) DVT prophylaxis Current Visit: Yes Status: Acute Plan to address problem: Apixaban 5 mg p.o. daily for DVT prophylaxis. Pepcid 20 mg IV twice daily for GI prophylaxis. Patient is DNR as per the case management social worker
[2020-12-25] MEDS ORDERED: D5W/0.45% NACL 1,000 ML IV SCH (23:45)
[2020-12-26] MEDS: IPRATROPIUM/ALBUTEROL SULFATE 3 ML AMPUL.NEB IH SCH ×4 (01:39→20:18)
[2020-12-26] MEDS ORDERED: dilTIAZem 25 MG/5 ML INJ IV PRN (04:32)
[2020-12-26 06:14] LABS: Hematocrit 26.6 % (30.3-42.9); Hemoglobin 9.1 gm/dl (10.1-14.3); Mean Corpuscular HGB Conc 34 % (30-34); Mean Corpuscular Volume 87 fl (79-97); Platelet Count 267 K/mm3 (140-440); Red Blood Count 3.05 M/mm3 (3.65-5.03); Red Cell Distribution Width 18.8 % (13.2-15.2)
[2020-12-26 06:34] LABS: Blood Urea Nitrogen 11 mg/dL (7-17); Calcium 10.4 mg/dL (8.4-10.2); Hemolysis Index 0
[2020-12-26 06:35] LABS: BUN/Creatinine Ratio 37
--- NOTE | 2020-12-26 08:31 | Consultation ---
History of Present Illness - Reason for Consult Consult date: 12/26/20 Reason for consult: MHE Requesting physician: GILBERTO KNOWLES - Chief Complaint Chief complaint: Drug overdose Morphine overdose - History of Present Psychiatric Illness Per ED Provider: This is a 50-year-old -[place] female who presents to the emergency department via EMS from home after a suicide attempt by overdose of morphine. 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 One of the [facility] hospice nurses went to check on her today and found her with some water in which she had dissolved 120 mg of morphine. This was on top of the Percocet that she also takes. Per the hospice nurse, they have concerned that the patient has be en doing this over the past few days. The patient readily admits that she was attempting to end her life due to the pain that she is in. Apparently, per the hospice nurse, the patient has family that lives in [place] but thinks that [facility] is 24-hour care, which he does not. Currently the patient is awake and alert, and just complains of generalized pain. 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 I attempted to interview patient this AM, she is barely audible with breathing mask on, appears to be in breathing difficulty, though alert but barely audible and tends to have her eyes with an upward gaze. Patient HPI collected and reviewed at ED note. PAST PSYCHIATRIC HISTORY Diagnoses: n/a Suicide attempts or Self-harm behavior: n/a Prior psychiatric hospitalizations: n/a Substance Abuse history: n/a Previous psychiatric medications tried: n/a Outpatient treatment: n/a PAST MEDICAL HISTORY: Breast cancer with metastasis Family Psychiatric History: None reported or documented SOCIAL HISTORY Marital Status: n/a Living Arrangements: n/a Employment Status: n/a Access to guns/weapons: n/a Education: n/a History of Abuse: n/a Legal History: n/a REVIEW OF SYSTEMS ROS cannot be reliably obtained from the patient due to her medical state. MENTAL STATUS EXAMINATION General Appearance and Behavior: Age appropriate, good hygiene, wearing appropriate clothes, good eye contact, uncooperative with questioning. Cooperation: Withdrawn Psychomotor Behavior: unremarkable and within normal limits Mood: Neutral Affect and affective range: Flat Thought Process:N/A Thought Content: N/A Speech: Normal volume, Regular rate and rhythm Intellectual Functioning: N/A Suicidal Ideation: N/A l Homicidal Ideation: N/A Impulse Control: Impaired Insight and Judgment: Impaired Memory: N/A Attention: Normal, Orientation: Alert Assessment and Plan - Psychiatric problem (1) Depressive disorder due to separate medical condition Current Visit: Yes Status: Acute F06.30 Treatment Plan Patient with chronic stage IV breast cancer and metastasis and on hospice, could barely breathe on examination. Depressed due to chronic cancer diagnosis and appears to not be fairing well medically. No acute inpatient psychiatric intevrention would be beneficial at this time. It was mentioned patient does not have 247 hospice care and probably lives by self. We recommend hospice care in a facility with a 247 surveillance at this time. MEDICATIONS: Risks, benefits and alternatives of medications discussed with the patient, questions answered and consent obtained from patient. PSYCHOTHERAPY: Supportive psychotherapy provided MEDICAL: Per primary team DELIRIUM PRECAUTIONS: Please re-orient patient frequently, keep lights on during the day, and minimize benzodiazepines and opiates as these medications could worsen patient's confusion. CUSTODIAN MANAGER: Per medical DISPOSITION: Do Not Recommend acute inpatient psychiatric hospitalization at this time. Case discussed with Dr. Ku who agrees with current disposition LEGAL STATUS: 1013 rescinded FOLLOW-UP: Will sign off Thank you for the consult. Please contact with any questions and/or concerns. Medications and Allergies Allergies Allergy/AdvReac Type Severity Reaction Status Date / Time Penicillins Allergy Hives Verified 05/26/20 18:38 Home Medications Medication Instructions Recorded Confirmed Last Taken Type Acetaminophen [Acetaminophen 1 supp WA Q4HR 12/25/20 12/25/20 Unknown History SUPPOS] Apixaban [Eliquis] 5 mg PO DAILY 12/25/20 12/25/20 Unknown History Chlorpheniramine Maleate 4 mg PO DAILY 12/25/20 12/25/20 Unknown History [Chlortabs] LORazepam [Ativan] 1 tab PO QID PRN 12/25/20 12/25/20 Unknown History Magnesium Oxide [Magnesium] 400 mg PO BID 12/25/20 12/25/20 Unknown History Mirtazapine [Remeron] 15 mg PO DAILY 12/25/20 12/25/20 Unknown History Morphine Concentrate 5 ml PO Q6HR PRN 12/25/20 12/25/20 Unknown History Morphine ER [Ms Contin ER] 30 mg PO Q12HR 12/25/20 12/25/20 12/25/20 History Ondansetron HCl [Zofran] 4 mg PO TID PRN 12/25/20 12/25/20 Unknown History Sennosides [Senna] 1 tab PO DAILY 12/25/20 12/25/20 Unknown History Simethicone [Bicarsim] 80 mg PO DAILY 12/25/20 12/25/20 Unknown History oxyCODONE /ACETAMINOPHEN [Percocet 2 tab PO BID 12/25/20 12/25/20 12/25/20 History 5/325] traZODone [Desyrel] 50 mg PO QHS 12/25/20 12/25/20 Unknown History Active Meds: Active Medications Acetaminophen (Acetaminophen 325 Mg Tab) 650 mg PO Q4H PRN PRN Reason: Pain MILD(1-3)/Fever >100.5/MARCANO Albuterol (Albuterol 2.5 Mg/3 Ml Nebu) 2.5 mg IH Q3HRT PRN PRN Reason: Shortness Of Breath Albuterol/Ipratropium (Ipratropium/Albuterol Sulfate 3 Ml Ampul.Neb) 1 ampul IH Q6HRT [facility] Last Admin: 12/26/20 01:39 Dose: 1 ampul Documented by: Apixaban (Apixaban 5 Mg Tab) 5 mg PO Q12HR [facility] Calcitonin Hankins (Calcitonin,Hankins,Synthetic 400 Unit/2 Ml Inj Mdv) 250 unit 4 unit/kg (250 unit) IM Q12HR [facility] Diltiazem HCl (Diltiazem 25 Mg/5 Ml Inj) 10 mg IV Q8H PRN PRN Reason: Tachyarrhythmias Famotidine (Famotidine 20 Mg/2 Ml Inj) 20 mg IV BID MARYELLEN Hydralazine HCl (Hydralazine 20 Mg/1 Ml Inj) 10 mg IV Q6H PRN PRN Reason: htn Dextrose/Sodium Chloride (D5ns) 1,000 mls @ 100 mls/hr IV DIRECT MARYELLEN Magnesium Oxide (Magnesium Oxide 400 Mg Tab) 400 mg PO BID MARYELLEN Mirtazapine (Mirtazapine 15 Mg Tab) 15 mg PO DAILY MARYELLEN Ondansetron HCl (Ondansetron 4 Mg/2 Ml Inj) 4 mg IV Q8H PRN PRN Reason: Nausea And Vomiting Senna (Sennosides 8.6 Mg Tab) 8.6 mg PO DAILY MARYELLEN Simethicone (Simethicone 80 Mg Chew Tab) 80 mg PO DAILY MARYELLEN Sodium Chloride (Sodium Chloride 0.9% 10 Ml Flush Syringe) 10 ml IV BID MARYELLEN Sodium Chloride (Sodium Chloride 0.9% 10 Ml Flush Syringe) 10 ml IV PRN PRN PRN Reason: LINE FLUSH Mental Status Exam - Vital signs Last Vital Signs Temp 97.7 F 12/25/20 19:38 Pulse 129 H 12/26/20 05:00 Resp 40 H 12/26/20 05:00 BP 136/71 12/26/20 05:00 Pulse Ox 98 12/26/20 05:00 Results Result Diagrams: 12/26/20 05:55 12/26/20 05:55 Abnormal lab results 12/25/20 12/25/20 12/25/20 Range/Units 20:07 20:07 20:07 WBC 11.4 H (4.5-11.0) K/mm3 RBC (3.65-5.03) M/mm3 Hgb (10.1-14.3) gm/dl Hct (30.3-42.9) % RDW 19.2 H (13.2-15.2) % Seg Neuts % (Manual) 89.0 H (40.0-70.0) % Lymphocytes % (Manual) 6.0 L (13.4-35.0) % Seg Neutrophils # Man 10.1 H (1.8-7.7) K/mm3 Lymphocytes # (Manual) 0.7 L (1.2-5.4) K/mm3 Sodium 123 L (137-145) mmol/L Chloride 81.8 L (98-107) mmol/L Creatinine 0.3 L (0.6-1.2) mg/dL Calcium 11.5 H (8.4-10.2) mg/dL AST 58 H (5-40) units/L Alkaline Phosphatase 244 H (35-129) units/L Albumin 3.0 L (3.9-5) g/dL Salicylates < 0.3 L (2.8-20.0) mg/dL Acetaminophen (10.0-30.0) ug/mL 12/25/20 12/26/20 12/26/20 Range/Units 20:07 05:55 05:55 WBC (4.5-11.0) K/mm3 RBC 3.05 L (3.65-5.03) M/mm3 Hgb 9.1 L (10.1-14.3) gm/dl Hct 26.6 L (30.3-42.9) % RDW 18.8 H (13.2-15.2) % Seg Neuts % (Manual) (40.0-70.0) % Lymphocytes % (Manual) (13.4-35.0) % Seg Neutrophils # Man (1.8-7.7) K/mm3 Lymphocytes # (Manual) (1.2-5.4) K/mm3 Sodium 127 L (137-145) mmol/L Chloride 84.9 L (98-107) mmol/L Creatinine 0.3 L (0.6-1.2) mg/dL Calcium 10.4 H (8.4-10.2) mg/dL AST (5-40) units/L Alkaline Phosphatase (35-129) units/L Albumin (3.9-5) g/dL Salicylates (2.8-20.0) mg/dL Acetaminophen 5.0 L (10.0-30.0) ug/mL All other labs normal. Assessment and Plan - Psychiatric problem (1) Depressive disorder due to separate medical condition Current Visit: Yes Status: Acute
[2020-12-26] MEDS: MIRTAZAPINE 15 MG TAB PO SCH (09:20)
[2020-12-26] MEDS: MAGNESIUM OXIDE 400 MG TAB PO SCH ×2 (09:20→21:45)
[2020-12-26] MEDS: SIMETHICONE 80 MG CHEW TAB PO SCH (09:20)
[2020-12-26] MEDS: FAMOTIDINE 20 MG/2 ML INJ IV SCH ×2 (09:20→21:45)
[2020-12-26] MEDS: SENNOSIDES 8.6 MG TAB PO SCH (09:20)
[2020-12-26] MEDS ORDERED: APIXABAN 5 MG TAB PO SCH (10:00)
[2020-12-26] MEDS ORDERED: CALCITONIN,SALMON,SYNTHETIC 400 UNIT/2 ML INJ MDV IM SCH (10:00)
[2020-12-26 11:37] LABS: Anisocytosis Few; Platelet Estimate Consistent w Auto; Total Cells Counted 100
--- NOTE | 2020-12-26 13:37 | Electrocardiograph Report ---
[facility] Test Date: 2020-12-25 Test Time: 21:31:25 Pat Name: KATY GUIDO Department: Room: A459 1 Gender: F Coil Cutter: GOMEZ : 1970 Requested By: GILBERTO KNOWLES Order Number: [id number] Reading MD: Elisha Doss Measurements Intervals [place] Rate: 116 P: 31 SC: 133 QRS: 53 QRSD: 72 T: 46 QT: 322 QTc: 448 Interpretive Statements Sinus tachycardia No previous ECG available for comparison Electronically Signed On 12-26-2020 13:36:58 EDT by Elisha Doss
--- NOTE | 2020-12-26 14:30 | Progress Note ---
Assessment and Plan (1) Overdose of opiate or related narcotic Current Visit: Yes Status: Acute Plan to address problem: Admit the patient to the medical telemetry. N.p.o. D5 normal saline at the rate of 100 cc/h. We will discontinue all narcotic medication. Oxygen by nasal cannula 3 L/min. DuoNeb by nebulizer every 4 hours as needed. We will monitor the patient closely. We also consult inpatient psych. We also consult case management for palliative care. (2) Suicide attempt by drug overdose Current Visit: Yes Status: Acute Plan to address problem: N.p.o. [id number] saline at the rate of 100 cc/h. We will discontinue all narcotic medication. Oxygen by nasal cannula 3 L/min. DuoNeb by nebulizer every 4 hours as needed. We will monitor the patient closely. We also consult inpatient psych (3) Breast cancer metastasized to bone Current Visit: Yes Status: Acute Plan to address problem: Patient has breast cancer metastatic to the bone and liver. Prognosis is poor. consult hematology oncology if needed (4) Fracture of pedicle of cervical vertebra Current Visit: Yes Status: Acute Plan to address problem: Patient is on soft neck collar as per neurosurgeon. ER doctor already talk with Dr. Francisco Bateman. Neurosurgeon will see the patient in the morning (5) Hypercalcemia Current Visit: Yes Status: Acute Plan to address problem: We will read rehydrate the patient. D5 normal saline at the rate 100 cc/h. We will recheck the BMP in the morning. will put the patient on calcitonin (6) Hyponatremia Current Visit: Yes Status: Acute Plan to address problem: D5 normal saline at the rate of 100 cc/h. Recheck the BMP in the morning. (7) DVT prophylaxis Current Visit: Yes Status: Acute Plan to address problem: Apixaban 5 mg p.o. daily for DVT prophylaxis. Pepcid 20 mg IV twice daily for GI prophylaxis. Patient is DNR as per the child welfare social worker Daily clinical course: 12/26/20: Pending neurosurgery consult, psych consulted for possible overdose -I doubt that patient is suicidal. Continue IV fluid for now, speech eval. continue supportive care. Called patient's mother with the phone number that is in the chart but no one answered the call. Subjective Date of service: 12/26/20 Interval history: Patient seen and examined. Medical records and medication list reviewed. No acute event overnight noted by the RN. Sitter at the bedside, patient is unable to provide any detailed history Objective - Exam Narrative Exam: GENERAL: -[place] female lying on bed with moderate distress, she hardly can speak and continued moaning HEENT: Normocephalic. Atraumatic. No conjunctival congestion or icterus. Patient has moist mucous membranes. NECK: Supple. Trachea midline. CHEST/LUNGS: Clear to auscultated bilaterally, breathing nonlabored. No wheezes crackles or rhonchi. Left breast appears to be with breast mass HEART/CARDIOVASCULAR: Regular in rate and rhythm. S1 and S2 positive. ABDOMEN: Abdomen is soft, nontender. Patient has normal bowel sounds. SKIN: There is no rash. Warm and dry. NEURO: Able to move extremities MUSCULOSKELETAL: No joint effusion or tenderness. EXTRIMITY: No edema, no cyanosis or clubbing. PSYCH: Unable to assess - Constitutional Vitals: Vital Signs - 12hr 12/26/20 12/26/20 12/26/20 03:00 04:00 05:00 Pulse Rate 127 H 127 H 129 H Pulse Rate [ Bilateral] Pulse Rate [ From Monitor] Respiratory 33 H 37 H 40 H Rate Respiratory Rate [Bilateral ] Blood Pressure 116/69 125/71 136/71 O2 Sat by Pulse 100 98 98 Oximetry 12/26/20 12/26/20 12/26/20 09:33 09:58 11:45 Pulse Rate 79 Pulse Rate [ 130 H Bilateral] Pulse Rate [ 77 From Monitor] Respiratory 18 Rate Respiratory 20 Rate [Bilateral ] Blood Pressure O2 Sat by Pulse 99 97 Oximetry - Labs CBC & Chem 7: 12/26/20 05:55 12/26/20 05:55 Labs: Abnormal lab results 12/25/20 12/25/20 12/25/20 Range/Units 20:07 20:07 20:07 WBC 11.4 H (4.5-11.0) K/mm3 RBC (3.65-5.03) M/mm3 Hgb (10.1-14.3) gm/dl Hct (30.3-42.9) % RDW 19.2 H (13.2-15.2) % Seg Neuts % (Manual) 89.0 H (40.0-70.0) % Lymphocytes % (Manual) 6.0 L (13.4-35.0) % Seg Neutrophils # Man 10.1 H (1.8-7.7) K/mm3 Lymphocytes # (Manual) 0.7 L (1.2-5.4) K/mm3 Sodium 123 L (137-145) mmol/L Chloride 81.8 L (98-107) mmol/L Creatinine 0.3 L (0.6-1.2) mg/dL Calcium 11.5 H (8.4-10.2) mg/dL AST 58 H (5-40) units/L Alkaline Phosphatase 244 H (35-129) units/L Albumin 3.0 L (3.9-5) g/dL Salicylates < 0.3 L (2.8-20.0) mg/dL Acetaminophen (10.0-30.0) ug/mL 12/25/20 12/26/20 12/26/20 Range/Units 20:07 05:55 05:55 WBC (4.5-11.0) K/mm3 RBC 3.05 L (3.65-5.03) M/mm3 Hgb 9.1 L (10.1-14.3) gm/dl Hct 26.6 L (30.3-42.9) % RDW 18.8 H (13.2-15.2) % Seg Neuts % (Manual) 95.0 H (40.0-70.0) % Lymphocytes % (Manual) 3.0 L (13.4-35.0) % Seg Neutrophils # Man 10.4 H (1.8-7.7) K/mm3 Lymphocytes # (Manual) 0.3 L (1.2-5.4) K/mm3 Sodium 127 L (137-145) mmol/L Chloride 84.9 L (98-107) mmol/L Creatinine 0.3 L (0.6-1.2) mg/dL Calcium 10.4 H (8.4-10.2) mg/dL AST (5-40) units/L Alkaline Phosphatase (35-129) units/L Albumin (3.9-5) g/dL Salicylates (2.8-20.0) mg/dL Acetaminophen 5.0 L (10.0-30.0) ug/mL
[2020-12-26] MEDS: APIXABAN 2.5 MG TAB PO SCH ×2 (21:45→21:52)
[2020-12-26] MEDS: D5W/0.9% NACL 1,000 ML IV SCH (21:45)
[2020-12-26] MEDS ORDERED: APIXABAN 2.5 MG TAB PO SCH (22:00)
[2020-12-27] MEDS: IPRATROPIUM/ALBUTEROL SULFATE 3 ML AMPUL.NEB IH SCH ×4 (04:06→20:46)
[2020-12-27] MEDS: D5W/0.9% NACL 1,000 ML IV SCH ×2 (06:17→15:49)
[2020-12-27] MEDS: SIMETHICONE 80 MG CHEW TAB PO SCH (09:55)
[2020-12-27] MEDS: SENNOSIDES 8.6 MG TAB PO SCH ×2 (09:55→13:20)
[2020-12-27] MEDS: APIXABAN 2.5 MG TAB PO SCH ×2 (09:55→22:45)
[2020-12-27] MEDS: MIRTAZAPINE 15 MG TAB PO SCH (09:55)
[2020-12-27] MEDS: FAMOTIDINE 20 MG/2 ML INJ IV SCH ×2 (09:55→22:45)
[2020-12-27] MEDS: MAGNESIUM OXIDE 400 MG TAB PO SCH ×2 (09:55→22:45)
--- NOTE | 2020-12-27 12:31 | Progress Note ---
Assessment and Plan Assessment and Plan (1) Overdose of opiate or related narcotic Current Visit: Yes Status: Acute Plan to address problem: Stable (2) Suicide attempt by drug overdose Current Visit: Yes Status: Acute Plan to address problem: 1013 rescinded (3) Breast cancer metastasized to bone Current Visit: Yes Status: Acute Plan to address problem: Supportive No need for Neurosurgery (4) Fracture of pedicle of cervical vertebra Current Visit: Yes Status: Acute Plan to address problem: Patient is on soft neck collar as per neurosurgeon. ER doctor already talk with Dr. Francisco Bateman. Neurosurgeon will see the patient in the morning (5) Hypercalcemia Current Visit: Yes Status: Acute Plan to address problem: We will read rehydrate the patient. D5 normal saline at the rate 100 cc/h. We will recheck the BMP in the morning. will put the patient on calcitonin (6) Hyponatremia Current Visit: Yes Status: Acute Plan to address problem: D5 normal saline at the rate of 100 cc/h. Recheck the BMP in the morning. (7) DVT prophylaxis Current Visit: Yes Status: Acute Plan to address problem: Apixaban 5 mg p.o. daily for DVT prophylaxis. Pepcid 20 mg IV twice daily for GI prophylaxis. Patient is DNR as per the social media marketer Discharge planning Stable for discharge to hospice-inpatient Subjective Date of service: 12/27/20 Principal diagnosis: Opiate overdose Interval history: 50-year-old -Luxembour[place] femalehistory of stage IV breast cancer with bony metastasis and is currently on hospice, but lives alone was brought to the emergency department via EMS from home after a suicide attempt by overdose of morphine. One of the [facility] hospice nurses went to check on her today and found her with some water in which she had dissolved 120 mg of morphine. This was on top of the Percocet that she also takes. Per the hospice nurse, they have concerned that the patient has been doing this over the past few days. The patient readily admits that she was attempting to end her life due to the pain that she is in. Apparently, per the hospice nurse, the patient has family that lives in [place] but thinks that [facility] is 24-hour care, which he does not. Currently the patient is awake and alert, and just complains of generalized pain. In the emergency room patient is found to have morphine overdose. Also patient sodium is 123 CT scan of the head and cervical spine showed prominent evidence of bony metastasis disease including sclerotic and lytic elements. There is prominent bone lysis at C2-C3 involving the vertebral body with extension into the both pedicles but particularly on the right higher the pedicle is almost entirely destroyed. Prominent compression of the C3 vertebral body is seen with mild retropulsion of a fragment. This is considered a potentially unstable situation based on the pedicle involvement. Subsequently ER physician talked with neurosurgeon Dr. Francisco Bateman who will see the patient in consultation in the morning. Daily clinical course: 12/26/20: Pending neurosurgery consult, psych consulted for possible overdose -I doubt that patient is suicidal. Continue IV fluid for now, speech eval. con tinue supportive care. Called patient's mother with the phone number that is in the chart but no one answered the call. 12/27/2020 Patient more alert and oriented Neurosurgery consult was canceled after talking with the neurosurgeon because we mutually agreed that there is not much that can be done for brain metastasis and the cervical metastasis. Objective - Constitutional Vitals: Vital Signs - 12hr 12/27/20 12/27/20 12/27/20 04:25 07:31 09:12 Temperature 97.8 F 98.6 F Pulse Rate 120 H 124 H Pulse Rate [ 126 H Anterior Bilateral Throughout] Respiratory 30 H 18 Rate Respiratory 24 Rate [Anterior Bilateral Throughout] Blood Pressure 109/77 Blood Pressure 132/72 [Right] O2 Sat by Pulse 96 96 95 Oximetry 12/27/20 10:57 Temperature Pulse Rate Pulse Rate [ Anterior Bilateral Throughout] Respiratory 18 Rate Respiratory Rate [Anterior Bilateral Throughout] Blood Pressure Blood Pressure [Right] O2 Sat by Pulse Oximetry General appearance: Present: no acute distress, well-nourished - EENT Eyes: PERRL, EOM intact ENT: hearing intact, clear oral mucosa Ears: bilateral: normal - Neck Neck: supple, normal ROM - Respiratory Respiratory effort: normal Respiratory: bilateral: CTA - Breasts Breasts: normal - Cardiovascular Heart rate: 78 Rhythm: regular Heart Sounds: Present: S1 & S2. Absent: gallop, rub Extremities: pulses intact, No edema, normal color, Full ROM - Gastrointestinal General gastrointestinal: Present: soft, non-tender, non-distended, normal bowel sounds - Genitourinary Female genitourinary: normal - Integumentary Integumentary: clear, warm, dry - Musculoskeletal Musculoskeletal: strength equal bilaterally, generalized weakness - Neurologic Neurologic: moves all extremities - Psychiatric Psychiatric: other (Lethargic which is baseline) - Labs CBC & Chem 7: 12/26/20 05:55 12/26/20 05:55
[2020-12-28] MEDS: D5W/0.9% NACL 1,000 ML IV SCH (05:48)
[2020-12-28] MEDS ORDERED: IPRATROPIUM/ALBUTEROL SULFATE 3 ML AMPUL.NEB IH SCH (08:00)
[2020-12-28] MEDS: MAGNESIUM OXIDE 400 MG TAB PO SCH (09:20)
[2020-12-28] MEDS: SIMETHICONE 80 MG CHEW TAB PO SCH (09:20)
[2020-12-28] MEDS: APIXABAN 2.5 MG TAB PO SCH (09:20)
[2020-12-28] MEDS: MIRTAZAPINE 15 MG TAB PO SCH (09:30)
[2020-12-28] MEDS: SENNOSIDES 8.6 MG TAB PO SCH (09:31)
[2020-12-28] MEDS ORDERED: FAMOTIDINE 20 MG TAB PO SCH (10:00)
[2020-12-28 12:55] VITALS: BP 143/71
--- NOTE | 2020-12-28 13:03 | Discharge Summary ---
Providers - Providers Date of Admission: 12/25/20 23:15 Date of discharge: 12/28/20 Attending physician: CISCO MELTON 12/25/20 Consult to Case Management [CONS] Routine Services Needed at Discharge: Other Notified:: case finisher Comment:: Palliative care. Inpatient hospice 12/25/20 23:34 Consult to Dietitian/Nutrition [CONS] Routine Physician Instructions: Reason For Exam: Reason for Consult: Malnutrition 12/25/20 23:37 Consult to Mental Health [CONS] Routine Reason For Exam: Suicidal ideation 12/26/20 16:55 Speech Therapy Evaluation and Treat [CONS] Routine Reason For Exam: aspiration 12/27/20 07:16 Consult to Physician [CONS] Routine Comment: Consulting Provider: FRANCISCO ALVARENGA II Physician Instructions: Reason For Exam: metastatic disease Primary care physician: [employer] Hospitalization Condition: Serious Hospital course: Subjective Date of service: 12/28/20 Principal diagnosis: Opiate overdose Interval history: 50-year-old -[place] femalehistory of stage IV breast cancer with bony metastasis and is currently on hospice, but lives alone was brought to the emergency department via EMS from home after a suicide attempt by overdose of morphine. One of the [facility] hospice nurses went to check on her today and found her with some water in which she had dissolved 120 mg of morphine. This was on top of the Percocet that she also takes. Per the hospice nurse, they have concerned that the patient has been doing this over the past few days. The patient readily admits that she was attempting to end her life due to the pain that she is in. Apparently, per the hospice nurse, the patient has family that lives in [place] but thinks that [facility] is 24-hour care, which he does not. Currently the patient is awake and alert, and just complains of generalized pain. In the emergency room patient is found to have morphine overdose. Also patient sodium is 123 CT scan of the head and cervical spine showed prominent evidence of bony metastasis disease including sclerotic and lytic elements. There is prominent bone lysis at C2-C3 involving the vertebral body with extension into the both pedicles but particularly on the right higher the pedicle is almost entirely destroyed. Prominent compression of the C3 vertebral body is seen with mild retropulsion of a fragment. This is considered a potentially unstable situation based on the pedicle involvement. Subsequently ER physician talked with neurosurgeon Dr. Francisco Bateman who will see the patient in consultation in the morning. Daily clinical course: 12/26/20: Pending neurosurgery consult, psych consulted for possible overdose -I doubt that patient is suicidal. Continue IV fluid for now, speech eval. continue supportive care. Called patient's mother with the phone number that is in the chart but no one answered the call. 12/27/2020 Patient more alert and oriented Neurosurgery consult was canceled after talking with the neurosurgeon because we mutually agreed that there is not much that can be done for brain metastasis and the cervical metastasis. Assesment and Plan (1) Overdose of opiate or related narcotic Current Visit: Yes Status: Acute Plan to address problem: Stable (2) Suicide attempt by drug overdose Current Visit: Yes Status: Acute Plan to address problem: 1013 rescinded (3) Fracture of pedicle of cervical vertebra Current Visit: Yes Status: Acute Plan to address problem: Patient is on soft neck collar as per neurosurgeon. (4) Breast cancer metastasized to bone Current Visit: Yes Status: Acute Plan to address problem: Supportive No need for Neurosurgery (5) Hypercalcemia Current Visit: Yes Status: Acute Plan to address problem: Improved (6) Hyponatremia Current Visit: Yes Status: Acute Plan to address problem: Improved to 127 Increase salt intake (7) DVT prophylaxis Current Visit: Yes Status: Acute Plan to address problem: Apixaban 5 mg p.o. daily for DVT prophylaxis. Pepcid 20 mg IV twice daily for GI prophylaxis. Patient is DNR as per the social services counselor Discharge planning Stable for discharge to hospice-inpatient Disposition: DC-01 TO HOME OR SELFCARE Final Discharge Diagnosis (Prints w/discharge instructions): (1) Overdose of opiate or related narcotic. (2) Suicide attempt by drug overdose. 3) breast cancer with metastasis. 4) cervical spine metastasis with fracture. 5) advance care planning and hospice placement - Discharge Diagnoses (1) Fracture of pedicle of cervical vertebra Status: Chronic Qualifiers: Encounter type: subsequent encounter Qualified Code(s): S12.9XXD - Fracture of neck, unspecified, subsequent encounter Comment: Cervical collar (2) Breast cancer metastasized to bone Status: Acute Qualifiers: Laterality: unspecified laterality Qualified Code(s): C50.919 - Malignant neoplasm of unspecified site of unspecified female breast; C79.51 - Secondary malignant neoplasm of bone (3) Hypercalcemia Status: Acute (4) Overdose of opiate or related narcotic Status: Acute Qualifiers: Encounter type: initial encounter Injury intent: intentional self-harm Qualified Code(s): T40.602A - Poisoning by unspecified narcotics, intentional self-harm, initial encounter (5) Advanced care planning/counseling discussion Status: Acute Comment: 20 minutes spent on advance care planning and decision making. Patient decided about inpatient hospice placement and signed the papers. Core Measure Documentation - Palliative Care Palliative Care/ Comfort Measures: Hospice Care - Core Measures Any of the following diagnoses?: none Exam - Constitutional Vitals: Temp Pulse Resp BP Pulse Ox 98.5 F 117 H 20 143/71 100 12/28/20 11:37 12/28/20 11:37 12/28/20 11:37 12/28/20 11:37 12/28/20 11:37 General appearance: Present: no acute distress, well-nourished - EENT Eyes: Present: PERRL ENT: hearing intact, clear oral mucosa - Neck Neck: Present: supple, normal ROM, other (Cervical collar in place) - Respiratory Respiratory effort: normal Respiratory: bilateral: CTA - Cardiovascular Heart rate: 76 Rhythm: regular Heart Sounds: Present: S1 & S2. Absent: rub, click - Extremities Extremities: pulses symmetrical, No edema Peripheral Pulses: within normal limits - Abdominal General gastrointestinal: Present: soft, non-tender, non-distended, normal bowel sounds Female genitourinary: Present: normal - Integumentary Integumentary: Present: clear, warm, dry - Musculoskeletal Musculoskeletal: gait normal, strength equal bilaterally - Psychiatric Psychiatric: appropriate mood/affect, intact judgment & insight - Neurologic Neurologic: CNII-XII intact, moves all extremities Plan Activity: advance as tolerated Weight Bearing Status: Weight Bear as Tolerated Diet: regular Follow up with: PRIMARY CARE, [Primary Care Provider] - 3-5 Days
== END 2020-12-28 14:01 | disposition hospice, inpatient (51) | DRG 918 ==
LOC: ED 19:30 → 4A 23:15
PROVIDERS: ADMIT Hospitalist; ATTEND Internal Medicine
DX: T40.2X2A Poisoning by other opioids, intentional self-harm, initial encounter (principal); E87.1 Hypo-osmolality and hyponatremia; S12.9XXA Fracture of neck, unspecified, initial encounter; C79.51 Secondary malignant neoplasm of bone; M84.58XA Pathological fracture in neoplastic disease, other specified site, initial encounter for fracture; C50.919 Malignant neoplasm of unspecified site of unspecified female breast; E83.52 Hypercalcemia; F32.9 Major depressive disorder, single episode, unspecified; Z51.5 Encounter for palliative care; Z88.0 Allergy status to penicillin; X58.XXXA Exposure to other specified factors, initial encounter; Y93.89 Activity, other specified; Y92.89 Other specified places as the place of occurrence of the external cause; Y99.8 Other external cause status
CPT/HCPCS: 36415; 70450; 72125; 80048; 80053; 80307; 80320; 81001; 82962; 83735; 84100; 85007; 85025; 93005; 94640; G0378; G0480; J7030; J7042